=== PATIENT | male | born 1980 | race African-American/Black ===

== ENCOUNTER 2024-03-22 21:56 | Emergency (ER) | payer OTHER ==
[2024-03-23] MEDS ORDERED: Penicillin V Potassium 250 MG TAB PO SCH (00:15)
[2024-03-23] MEDS ORDERED: traMADol HCl 50 MG TAB ONE (00:34)
== END 2024-03-23 00:40 | disposition home or self-care (01) ==
LOC: CSHERS 21:56
DX: K04.01 Reversible pulpitis (principal); K02.9 Dental caries, unspecified; F17.210 Nicotine dependence, cigarettes, uncomplicated; F17.290 Nicotine dependence, other tobacco product, uncomplicated
CPT/HCPCS: 99282